=== PATIENT | male | born 1970 | race Caucasian/White ===

== ENCOUNTER 2020-05-28 08:03 | Inpatient (IN) | payer MEDICARE ==
[~2020-05-28] VITALS: Ht 167.6 cm; Wt 115.2 kg
--- NOTE | 2020-05-28 08:43 | PHYS DOC ---
General Adult HPI: HPI: No smoking from patient. Patient is a 49-year-old male with history of open heart surgery, chronic pain syndrome who presents with multiple complaints. Patient states he has had intermittent chest pain over the past several days. He also notes intermittent shortness of breath seems to be worse with exertion. He also notices at rest. Denies any fevers or cough. Does note that his entire body hurts. He states he thinks he had a panic attack last night because he feels very anxious. Denies any history of anxiety or panic attack. States that he was concerned that his blood sugar was high so he checked his blood sugar last night. States this is the first of his average blood sugar and it read as "high." He does endorse polydipsia and polyuria. Does note that he has a fentanyl patch in place. Notes chronic constipation from this. He states he has had gradual vision changes over the past week. He states that he is extremely blurred vision. He states that he can only make out blurred objects. He can appreciate color, light, and movement. Denies headache. Denies trauma. States that he did not think to contact his family physician because a family physician has been busy and he has an appointment June 11. Denies history of diabetes. No other complaints. Review of Systems: Review of Systems: Constitutional: Denies fever or chills Eyes: Positive for vision change HENT: Denies nasal congestion or sore throat Respiratory: Positive for shortness of breath Cardiovascular: Positive for chest pain GI: Denies abdominal pain, nausea, vomiting, bloody stools or diarrhea : Denies dysuria Musculoskeletal: Denies back pain or joint pain Integument: Denies rash Neurologic: Denies headache, focal weakness or sensory changes Endocrine: Positive for polyuria and polydipsia Lymphatic: Denies swollen glands Psychiatric: Denies depression or anxiety Physical Exam: PE: Constitutional: Well developed, well nourished, no acute distress, non-toxic appearance. [] HENT: Normocephalic, atraumatic, bilateral external ears normal, oropharynx moist, no oral exudates, nose normal. [] Eyes: PERRLA, EOMI, conjunctiva normal, no discharge. [] Neck: Normal range of motion, no tenderness, supple, no stridor. [] Cardiovascular:Heart rate regular rhythm, no murmur [] Lungs & Thorax: Bilateral breath sounds clear to auscultation [] Abdomen: Bowel sounds normal, soft, no tenderness, no masses, no pulsatile masses. [] Skin: Warm, dry, no erythema, no rash. [] Back: No tenderness, no CVA tenderness. [] Extremities: No tenderness, no cyanosis, no clubbing, ROM intact, no edema. [] Neurologic: Alert and oriented X 3, normal motor function, normal sensory function, no focal deficits noted. [] Psychologic: Affect normal, judgement normal, mood normal. [] Current Patient Data: Labs: Laboratory Tests Test 05/28/20 08:50 White Blood Count 6.9 x10^3/uL Red Blood Count 5.36 x10^6/uL Hemoglobin 15.8 g/dL Hematocrit 46.5 % Mean Corpuscular Volume 87 fL Mean Corpuscular Hemoglobin 29 pg Mean Corpuscular Hemoglobin Concent 34 g/dL Red Cell Distribution Width 13.5 % Platelet Count 187 x10^3/uL Neutrophils (%) (Auto) 73 % Lymphocytes (%) (Auto) 18 % Monocytes (%) (Auto) 7 % Eosinophils (%) (Auto) 1 % Basophils (%) (Auto) 1 % Neutrophils # (Auto) 5.0 x10^3uL Lymphocytes # (Auto) 1.3 x10^3/uL Monocytes # (Auto) 0.5 x10^3/uL Eosinophils # (Auto) 0.1 x10^3/uL Basophils # (Auto) 0.0 x10^3/uL Sodium Level 124 mmol/L Potassium Level 4.6 mmol/L Chloride Level 89 mmol/L Carbon Dioxide Level 26 mmol/L Anion Gap 9 Blood Urea Nitrogen 15 mg/dL Creatinine 1.4 mg/dL Estimated GFR (Cockcroft-Gault) 54.1 BUN/Creatinine Ratio 11 Glucose Level 638 mg/dL Calcium Level 9.3 mg/dL Magnesium Level 2.1 mg/dL Total Bilirubin 1.0 mg/dL Aspartate Amino Transf (AST/SGOT) 55 U/L Alanine Aminotransferase (ALT/SGPT) 134 U/L Alkaline Phosphatase 156 U/L Troponin I Quantitative < 0.017 ng/mL Total Protein 8.2 g/dL Albumin 4.0 g/dL Albumin/Globulin Ratio 1.0 Lipase 145 U/L EKG: EKG: [] EKG consistent with sinus tachycardia. Ventricular rate of 109 bpm. Left axis noted. Intervals normal. P wave inversion noted in leads V1 and V2. No acute ischemic changes appreciated. Radiology/Procedures: Radiology/Procedures: [address] [address] IMAGING REPORT Signed PATIENT: LES DURHAM AACCOUNT: [id number] : 1970 LOCATION: ER AGE: 49 SEX: M EXAM STATUS: REG ER ORD. PHYSICIAN: CASSIE SUAREZ DO REASON: CHEST PAIN PROCEDURE: CHEST AP ONLY EXAM: CHEST 1 VIEW History: Chest pain COMPARISON: None available. TECHNIQUE: Single portable radiograph of the chest FINDINGS: The cardiac silhouette is unremarkable. The lungs are clear bilaterally. The costophrenic sulci are clear and well demarcated. IMPRESSION: No radiographic evidence of an acute cardiopulmonary process. Electronically signed by: Yovani Avendano MD (05/28/2020 9:11 AM) [id number] DICTATED AND SIGNED BY: YOVANI AVENDANO MD DATE: 05/28/20910 CC: CASSIE SUAREZ DO; PRADEEP HO MD ~MTH0 0 [] Heart Score: Risk Factors: Risk Factors: DM, Current or recent (<one month) smoker, HTN, HLP, family history of CAD, obesity. Risk Scores: Score 0 - 3: 2.5% MACE over next 6 weeks - Discharge Home Score 4 - 6: 20.3% MACE over next 6 weeks - Admit for Clinical Observation Score 7 - 10: 72.7% MACE over next 6 weeks - Early Invasive Strategies Course & Med Decision Making: Course & Med Decision Making Pertinent Labs and Imaging studies reviewed. (See chart for details) [] Patient is a 49-year-old male who presents with multiple complaints. Initial vital signs notable for tachycardia. EKG consistent with sinus tachycardia. Initial blood sugar is severely elevated at 638. This likely indicates new onset diabetes. Pseudohyponatremia present. No signs of DKA. Slight DILCIA and clinical dehydration on examination. Fluids will be initiated. Patient will require hospitalization for education and medication initiation for his new onset diabetes. Dragon Disclaimer: Dragon Disclaimer: This electronic medical record was generated, in whole or in part, using a voice recognition dictation system. Departure Departure: Impression: Primary Impression: Diabetes mellitus, new onset Additional Impression: DILCIA (acute kidney injury) Disposition: 09 ADMITTED INPT THIS HOSP Condition: STABLE Referrals: PRADEEP HO MD (PCP) CASSIE SUAREZ DO May 28, 2020 08:42
[2020-05-28 09:06] LABS: BASO % 1 % (0-3); EOS # 0.1 x10^3/uL (0.0-0.7); EOS % 1 % (0-3); HEMATOCRIT 46.5 % (39.0-53.0); HEMOGLOBIN 15.8 g/dL (13.0-17.5); LYMPH # 1.3 x10^3/uL (1.0-4.8); LYMPH % 18 % (24-48); MEAN CORPUSCULAR HEMOGLOBIN 29 pg (25-35); MEAN CORPUSCULAR HGB CONC 34 g/dL (31-37); MEAN CORPUSCULAR VOLUME 87 fL (79-100); MONO # 0.5 x10^3/uL (0.0-1.1); MONO % 7 % (0-9); NEUT % 73 % (31-73); PLATELET COUNT 187 x10^3/uL (140-400); RED BLOOD COUNT 5.36 x10^6/uL (4.30-5.70); RED CELL DISTRIBUTION WIDTH 13.5 % (11.5-14.5); WHITE BLOOD COUNT 6.9 x10^3/uL (4.0-11.0)
--- NOTE | 2020-05-28 09:06 | EKG ---
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
--- NOTE | 2020-05-28 09:14 | RAD ---
EXAM: CHEST 1 VIEW History: Chest pain COMPARISON: None available. TECHNIQUE: Single portable radiograph of the chest FINDINGS: The cardiac silhouette is unremarkable. The lungs are clear bilaterally. The costophrenic sulci are clear and well demarcated. IMPRESSION: No radiographic evidence of an acute cardiopulmonary process. Electronically signed by: Yovani Avendano MD (05/28/2020 9:11 AM) [id number]
[2020-05-28 09:22] LABS: CALCIUM 9.3 mg/dL (8.5-10.1); CREATININE 1.4 mg/dL (0.7-1.3); GFR 54.1; MAGNESIUM 2.1 mg/dL (1.8-2.4); POTASSIUM 4.6 mmol/L (3.5-5.1); TOTAL PROTEIN 8.2 g/dL (6.4-8.2)
[2020-05-28 09:29] LABS: BILIRUBIN,URINE NEG (NEG); CLARITY,URINE CLEAR; COLOR,URINE YELLOW; GLUCOSE,URINE >=1000 mg/dL (NEG)
[2020-05-28 09:30] LABS: BACTERIA,URINE 0 /HPF (0-FEW); NITRITE,URINE NEG (NEG); RBC,URINE OCC /HPF (0-2); SQUAMOUS EPITHELIAL CELL,UR OCC /LPF; UROBILINOGEN,URINE 0.2 mg/dL (0.2 mg/dL); WBC,URINE OCC /HPF (0-4)
[2020-05-28] MEDS ORDERED: IV NORMAL SALINE 1,000ML 1,000 ML IV ONE (09:45)
[2020-05-28] MEDS ORDERED: ONDANSETRON PF 4 MG/2 ML VIAL. IVP PRN (09:45)
[2020-05-28] MEDS ORDERED: INSULIN REGULAR 100 UNIT/ML 3ML VIAL. IV ONE (12:45)
[2020-05-28 13:19] VITALS: BP 132/90
[2020-05-28] MEDS ORDERED: ATORVASTATIN CA80 MG PO (14:07)
[2020-05-28] MEDS ORDERED: ASPI-630 PO (14:07)
[2020-05-28] MEDS ORDERED: METO25TA2 PO (14:07)
--- NOTE | 2020-05-28 14:29 | NUR ---
ADMISSION NOTE-Pt arrives via EMS at 1252. He is ambulatory ad pipo from cot to bed. He is on RA, with NS through a 20g PIV in (R) AC at 150mL/hr continuous. VSS, BP is elevated, et FSBS at this time is 452mg/dL, after administration of insulin in ED. Pt is oriented to room, et hospital routine. Admission questions asked, et assessment complete. Dr Benson here to see patient.
[2020-05-28] MEDS ORDERED: DEXTROSE 50% 25 GM / 50ML DISP.SYRIN. IV PRN (14:30)
[2020-05-28] MEDS: fentaNYL 25MCG/HR 1 PATCH PATCH TD SCH (15:00)
--- NOTE | 2020-05-28 15:40 | HP ---
ADMIT DATE: 05/28/2020 HISTORY OF PRESENT ILLNESS: The patient is a 49-year-old male patient who came to the Emergency Room today complaining of intermittent chest pain over the past several days. He also noted intermittent shortness of breath. This seems to be worse with exertion. He also notes that at rest, he had denied any fever or cough. He notes that he has entire body hurts. He told also that he has panic attack last night because he feels very anxious. Denied any history of anxiety or panic attacks. States that he has concern for his blood sugar. It was high, so he checked his blood sugar last night and stated that this is the first of his average blood sugar that is read as high. He does endorse polydipsia and polyuria and does note that he has fentanyl patch in place. He knows that he has chronic constipation. He states that he has gradual vision changes over the past weeks and he now has extremely blurred vision. He said he can only make out blurred objects. He cannot appreciate color light and movement. Denies any headache or trauma. Does not drink. He did not contact his primary care physician as he has an appointment on 06/11. He was told that he is prediabetic in 2012 when he was in [place], [place] when he had his open heart surgery. He was investigated in the Emergency Room and his lab work showed that he has marked hyperglycemia with blood sugar of 638; however, he was not in diabetic ketoacidosis. His kidney function is slightly impaired and he has dilutional hyponatremia. His anion gap was only 9. He has also elevated AST, ALT, alkaline phosphatase and was admitted for further evaluation and treatment. His urinalysis showed the urine was yellow, clear with a pH of 5, specific gravity 1.005. The urine was negative for protein, glucose was more than 1000 and there was small amount of ketones, trace of blood, negative for nitrite and leukocyte esterase. There are no rbc's, no wbc's, and no bacteria. His chest x-ray showed that the cardiac silhouette is unremarkable. The lungs are clear bilaterally. Costophrenic sulci are clear and well demarcated with no radiographic evidence of acute cardiopulmonary process. He was admitted with new onset type 2 diabetes mellitus, was started on IV fluid as well as insulin. PAST MEDICAL HISTORY: Significant for hypertension, hyperlipidemia, coronary artery disease. He also has morbid obesity with obstructive sleep apnea for which he was on CPAP. He has also chronic pain syndrome. PAST SURGICAL HISTORY: Significant for coronary artery bypass graft surgery and 2 surgeries also for his sternal wound dehiscence, appendectomy, tonsillectomy, left breast lump that was benign. ALLERGIES: HE IS ALLERGIC TO PENICILLIN AND MORPHINE. MEDICATIONS: He is currently on atorvastatin calcium 80 mg at bedtime, metoprolol succinate 25 mg once a day, aspirin 81 mg once a day and fentanyl patch 25 mcg topically q.72 hours. FAMILY HISTORY: He has one brother older and still alive with multiple medical problems, but he does not know him very well. He does not know his biological father. His mother at the age of 42 because of complication of end-stage renal disease and kidney transplant. SOCIAL HISTORY: He is , lives with his . He has a daughter from previous marriage. He quit smoking in 2012. He does not drink alcohol or use any recreational drugs. He is currently on disability. REVIEW OF SYSTEMS: The patient complained of blurring vision, but denied any cataract, glaucoma or macular degeneration. Denied any earache, tinnitus or sensorineural deafness. Denied any nosebleeds, stuffy nose or postnasal drip. Denied any sore throat, sore tongue, toothache, hoarseness of voice or difficulty swallowing. Denied any nausea, vomiting or diarrhea, but did complain of constipation. Denied any hematemesis, melena or hematochezia. Did complain of polyuria and polydipsia, but denied any dysuria or hematuria. Did complain of chest pain that apparently has been chronic since his multiple operations in the chest wall about in 2012 and 2013. Denied any orthopnea or paroxysmal nocturnal dyspnea. Denied any cough, phlegm or hemoptysis. Denied any dizziness, lightheadedness, or vertigo. Denied any chills, rigors or fever. ASSESSMENT AND PLAN: In summary, this is a 49-year-old male patient who came in with new onset type 2 diabetes mellitus with blood sugar that was extremely high at 638 mg/dL; however, his anion gap was only 9. He has also dilutional hyponatremia. PLAN: My plan is to reconcile all his medication including his fentanyl patch. We will start him on sliding scale as well as before meals and Lantus insulin, and we will add also on Glucophage and we will decide on further management accordingly. I will add also 2 more sets of cardiac enzyme. We will check his fasting lipid profile tomorrow as well as hemoglobin A1c. TYRESE MEDINA MD DR: VINAY/franchesca JOB#: [id number] / [id number]
[2020-05-28 16:46] VITALS: BP 160/98
[2020-05-28] MEDS: INSULIN LISPRO 300 UNITS/3 ML VIAL. SQ SCH ×2 (16:57→16:58)
[2020-05-28] MEDS: metFORMIN XR 500 MG TAB.ER.24H PO SCH (16:58)
[2020-05-28 19:48] VITALS: BP 139/85
[2020-05-28] MEDS ORDERED: INSULIN GLARGINE SYRINGE. SQ SCH (21:00)
[2020-05-28 22:32] VITALS: BP 110/69
--- NOTE | 2020-05-29 04:53 | NUR ---
Pt sleeping off and on through the night. He c/o occasional abdominal cramping LLQ, at times radiates to left flank or left lumbar. Pt states he has a constant 8/10 pain in his chest from wiring of sternum, even with lidocaine patch. Will continue to monitor.
[2020-05-29 05:51] VITALS: BP 124/90
[2020-05-29 07:42] LABS: BASO % 1 % (0-3); EOS # 0.1 x10^3/uL (0.0-0.7); EOS % 3 % (0-3); HEMATOCRIT 45.8 % (39.0-53.0); HEMOGLOBIN 15.7 g/dL (13.0-17.5); LYMPH # 1.2 x10^3/uL (1.0-4.8); LYMPH % 26 % (24-48); MEAN CORPUSCULAR HEMOGLOBIN 30 pg (25-35); MEAN CORPUSCULAR HGB CONC 34 g/dL (31-37); MEAN CORPUSCULAR VOLUME 87 fL (79-100); MONO # 0.2 x10^3/uL (0.0-1.1); MONO % 5 % (0-9); NEUT % 66 % (31-73); PLATELET COUNT 178 x10^3/uL (140-400); RED BLOOD COUNT 5.29 x10^6/uL (4.30-5.70); RED CELL DISTRIBUTION WIDTH 13.4 % (11.5-14.5); WHITE BLOOD COUNT 4.6 x10^3/uL (4.0-11.0)
[2020-05-29 07:46] LABS: CALCIUM 8.7 mg/dL (8.5-10.1); CREATININE 0.9 mg/dL (0.7-1.3); GFR 90.1; POTASSIUM 3.5 mmol/L (3.5-5.1)
[2020-05-29] MEDS: INSULIN LISPRO 300 UNITS/3 ML VIAL. SQ SCH ×6 (08:24→17:05)
[2020-05-29] MEDS: METOPROLOL SUCC 24HR ER 25 MG TAB.ER.24H. PO SCH (08:26)
[2020-05-29] MEDS: ATORVASTATIN CALCIUM 20 MG TABLET PO SCH (08:27)
[2020-05-29] MEDS: metFORMIN XR 500 MG TAB.ER.24H PO SCH ×2 (08:27→17:02)
[2020-05-29] MEDS: ASPIRIN CHEWABLE 81 MG TABLET. PO SCH (08:27)
[2020-05-29] MEDS ORDERED: FLU VACC QS 2020-21(6MOS+)/PF 0.5 ML SYRINGE. VAX IM ONE (09:00)
[2020-05-29 10:13] VITALS: BP 138/78
[2020-05-29 14:59] VITALS: BP 126/62
--- NOTE | 2020-05-29 15:17 | NUR ---
NSG NOTE; DIABETES EDUCATION HANDOUTS GIVEN ON DIABETES, DIET, METFORMIN AND INSULIN PT WAS EDUCATED ABOUT INJECTIONS AND WAS ABLE TO GIVE HIS OWN INSULIN AFTER I MICHELLE IT UP FROM THE BOTTLE. PT DOES HAVE A GLUCOMETER AT HOME THAT HE KNOWS HOW TO USE. HE STATED THAT HE WAS TOLD IN THE PAST THAT HE IS PREDIABETIC SO HIS HAD BOUGHT THE GLUCOMETER.
[2020-05-29 18:56] VITALS: BP 128/83
--- NOTE | 2020-05-29 20:42 | PN ---
DATE: 05/29/2020 SUBJECTIVE: The patient is sitting at the edge of the bed, eating his lunch comfortably, in no apparent distress. On questioning him, he denied any complaint. His chest pain is well controlled with fentanyl. His blood sugar obviously continued to be high, although it trending down. We did start him on Lantus and NovoLog insulin as well as metformin. In all likelihood that he probably will need to go home on insulin and therefore we start training him to check his blood sugar and also inject his own insulin. PHYSICAL EXAMINATION: GENERAL: When I saw him this afternoon, he looked well and was clearly in no apparent respiratory distress. No pallor, jaundice, cyanosis or thyromegaly. No jugular venous distention or limb edema. VITAL SIGNS: His heart rate was 103, blood pressure was 138/78, temperature 97.4, respiratory rate was 20, and oxygen saturation was 98%. HEAD, EYES, EARS, NOSE AND THROAT: Normocephalic, atraumatic. NECK: Supple. CARDIAC: Normal first and second heart sounds. No gallop, rub or murmur. CHEST: Clear to auscultation. No crepitation or rhonchi. ABDOMEN: Distended, soft, nontender. NEUROLOGIC: He was grossly intact. His intake over the last 24 hours was 1100, no output was recorded. LABORATORY DATA: His white cell count was 4600, hemoglobin 15, hematocrit 45, MCV 87, and platelet count of 178,000. Serum sodium was 131, potassium 3.5, chloride 98, bicarbonate 24, anion gap of 9, BUN 10, creatinine 0.9, estimated GFR was 90 mL per minute. His glucose was 318 and calcium was 8.7. His serum triglycerides were 342, total cholesterol 186, LDL was 91, VLDL was 68, HDL was 27 and the ratio was 6. ASSESSMENT: 1. New onset type 2 diabetes mellitus. 2. Hypertension. 3. Hyperlipidemia. 4. Coronary artery disease. 5. Morbid obesity, obstructive sleep apnea, on CPAP. 6. Chronic pain syndrome. PLAN: My plan is to increase his Glucophage to twice a day. We will also increase his Lantus to 30 units at bedtime and his NovoLog insulin to 15 units before meals and we will monitor his lab work and hopefully discharge him on a regimen that will control his blood sugar and his triglycerides. TYRESE MEDINA MD DR: [facility] JOB#: [id number] / [id number]
[2020-05-29] MEDS ORDERED: INSULIN GLARGINE SYRINGE. SQ SCH (21:00)
[2020-05-29 23:05] VITALS: BP 111/79
[2020-05-30 05:05] VITALS: BP 100/69
--- NOTE | 2020-05-30 05:56 | NUR ---
Pt reported he did not sleep well last night. He requested a sleeping pill about 0300. Medication and side effects discussed with pt. Ice cream given. Pt fell asleep shortly afterwards. Pt also requested an extra blanket through the night. Will continue to monitor.
[2020-05-30] MEDS: metFORMIN XR 500 MG TAB.ER.24H PO SCH ×2 (08:00→17:00)
[2020-05-30] MEDS: INSULIN LISPRO 300 UNITS/3 ML VIAL. SQ SCH ×6 (08:08→17:00)
[2020-05-30] MEDS: ASPIRIN CHEWABLE 81 MG TABLET. PO SCH (08:10)
[2020-05-30] MEDS: ATORVASTATIN CALCIUM 20 MG TABLET PO SCH (08:11)
[2020-05-30] MEDS: METOPROLOL SUCC 24HR ER 25 MG TAB.ER.24H. PO SCH (08:11)
[2020-05-30 08:38] LABS: CALCIUM 8.9 mg/dL (8.5-10.1); GFR 79.8; POTASSIUM 3.7 mmol/L (3.5-5.1)
[2020-05-30 10:45] VITALS: BP 149/99
[2020-05-30 11:22] VITALS: BP 136/92
[2020-05-30 14:54] VITALS: BP 154/98
[2020-05-30] MEDS ORDERED: INSULIN LISPRO 300 UNITS/3 ML VIAL. SQ SCH (15:15)
[2020-05-30 19:05] VITALS: BP 130/83
--- NOTE | 2020-05-30 20:42 | PN ---
DATE: 05/30/2020 SUBJECTIVE: The patient continues to be complaining of blurring of vision. He has chronic chest pain, but denied any other complaints. Nursing staff stated that his blood sugar continued to be high above the 300. PHYSICAL EXAMINATION: GENERAL: When I examined him this afternoon, he looked well and was clearly in no apparent respiratory distress. No pallor, jaundice, cyanosis or thyromegaly. No jugular venous distention. No limb edema. VITAL SIGNS: His heart rate was 88, blood pressure 154/98, temperature was 97.8, respiratory rate was 16, and oxygen saturation was 98%. The rest of clinical examination is stable. His intake was 1100, no output was recorded. LABORATORY DATA: His chemistry this morning showed a serum sodium 134, potassium 3.7, chloride 100, bicarbonate 24, anion gap of 10, BUN 12, creatinine 1. His estimated GFR was 80 mL per minute. His glucose was 321 and calcium was 8.9. ASSESSMENT: 1. New-onset type 2 diabetes mellitus with extreme hyperglycemia. 2. Blurred vision, likely due to osmotic changes in his lens. 3. Hypertension. 4. Hyperlipidemia. 5. Coronary artery disease. 6. Morbid obesity, obstructive sleep apnea, on continuous positive airway pressure. 7. Chronic pain syndrome. I did increase his Lantus to 50 units and NovoLog to 20 units before meals and Glucophage to 1000 mg twice a day. We will continue to monitor his blood sugar overnight and hopefully discharge him home to follow with his primary care physician. TYRESE MEDINA MD DR: VINAY/franchesca JOB#: [id number] / [id number]
[2020-05-30] MEDS ORDERED: INSULIN GLARGINE SYRINGE. SQ SCH (21:00)
[2020-05-30] MEDS ORDERED: traZODone 50 MG TABLET. PO SCH (21:00)
--- NOTE | 2020-05-31 04:50 | NUR ---
Pt awake in bed watching movie on cellphone at change of shift. Pt A&Ox4, pleasant and cooperative. Pt reports jumping legs tonight as he attempts to fall asleep. Slept on and off during night, stated "I always have trouble sleeping." Pt hopeful for DC home tomorrow. Pt took shower independently this AM.
[2020-05-31 05:22] VITALS: BP 123/79
[2020-05-31 06:10] LABS: CALCIUM 8.9 mg/dL (8.5-10.1); CREATININE 1.1 mg/dL (0.7-1.3); GFR 71.4; POTASSIUM 3.9 mmol/L (3.5-5.1)
[2020-05-31] MEDS: INSULIN LISPRO 300 UNITS/3 ML VIAL. SQ SCH ×4 (07:56→12:05)
[2020-05-31] MEDS: ASPIRIN CHEWABLE 81 MG TABLET. PO SCH (07:58)
[2020-05-31] MEDS: METOPROLOL SUCC 24HR ER 25 MG TAB.ER.24H. PO SCH (07:58)
[2020-05-31] MEDS: metFORMIN XR 500 MG TAB.ER.24H PO SCH (07:58)
[2020-05-31] MEDS: fentaNYL 25MCG/HR 1 PATCH PATCH TD SCH (07:59)
[2020-05-31] MEDS: ATORVASTATIN CALCIUM 20 MG TABLET PO SCH (08:04)
[2020-05-31 10:47] VITALS: BP 145/91
[2020-05-31 15:19] VITALS: BP 167/84
[2020-05-31] MEDS ORDERED: INSU100I13 SQ (15:46)
[2020-05-31] MEDS ORDERED: CRESTOR40 MG PO (15:46)
[2020-05-31] MEDS ORDERED: METF100010 PO (15:46)
[2020-05-31] MEDS ORDERED: ROPI0.25 PO (15:46)
[2020-05-31] MEDS ORDERED: INSU100V31 SQ (15:46)
--- NOTE | 2020-05-31 16:16 | NUR ---
PATIENT IS DISCHARGED HOME, DISCHARGE INSTRUCTIONS, MEDICATIONS REVIEWED , PATIENT VERBALIZED UNDERSTANDING. PATIENT LEFT UNIT VIA AMBULATION ACCOMPANIED BY STAFF MEMBER. PATIENT TAKEN HOME BY VIA PERSONAL VEHICLE.
--- NOTE | 2020-05-31 21:47 | DS ---
DATE OF DISCHARGE: 05/31/2020 HOSPITAL COURSE: The patient is a 49-year-old male patient who was admitted on 05/28 with intermittent chest pain over the past several days ____ intermittent shortness of breath. His blood sugar has been also extremely high, and in fact, by the time he arrived to the Emergency Room, his blood sugar was more than 600; however, he was not in diabetic ketoacidosis. He was slightly dehydrated also, dilutional hyponatremia and abnormal elevated liver enzymes, likely due to nonalcoholic steatohepatitis. The patient was started on IV fluid and started him on insulin, initially with NovoLog insulin and we added Lantus. His blood sugar has steadily come down. We did check his fasting lipid profile which showed that his serum triglycerides are elevated at 342. His total cholesterol was high and LDL cholesterol was also still high at 91. His VLDL was 68 and HDL was 27, the ratio was 6. He also complained of blurring of vision and I advised him not to go to his data conversion analyst to change his lenses up until his blood sugar is well controlled. PHYSICAL EXAMINATION: GENERAL: When I saw him today, he was sitting at the edge of the bed comfortably in no apparent respiratory distress. No pallor, jaundice, cyanosis, or thyromegaly. No jugular venous distention. No limb edema. VITAL SIGNS: His heart rate was 102, blood pressure was 167/84, temperature was 97.9, respiratory rate was 18 and oxygen saturation was 99%. HEAD, EYES, EARS, NOSE AND THROAT: Showed normocephalic, atraumatic. NECK: Supple. CARDIAC: Normal first and second heart sounds. No gallop, rub or murmur. CHEST: Clear to auscultation. No crepitation or rhonchi. ABDOMEN: Distended, soft, nontender. NEUROLOGIC: He is grossly intact. His intake was 1860, no output was recorded. LABORATORY DATA: His most recent lab work showed his serum sodium was 136, potassium 3.9, chloride 100, bicarbonate 28, anion gap of 8, BUN 12, creatinine 1.1, estimated GFR was 71 mL per minute. His glucose was 166 and calcium was 8.9. His white cell count was 4600, hemoglobin 16, hematocrit 46, MCV 87 and platelet count of 178,000. His urinalysis showed the urine was yellow, clear with a pH of 5, specific gravity 1.005. There was large amount of glycosuria, trace of ketones, trace of blood, negative for leukocyte esterase. We did check his hemoglobin A1c, the results of which are still pending at the time of this dictation. He was discharged home to continue on NovoLog insulin 20 units before meals and Lantus insulin 50 units subcutaneous at bedtime, metformin extended release 1000 mg twice a day, Requip 0.25 mg at bedtime and Crestor 40 mg at bedtime. Should continue also on aspirin and metoprolol succinate 25 mg daily. I did stop his atorvastatin calcium as his LDL cholesterol was still high. FINAL DISCHARGE DIAGNOSES: New-onset type 2 diabetes mellitus; hypertension; coronary artery disease; morbid obesity; obstructive sleep apnea, on CPAP; chronic pain syndrome; and restless leg syndrome. TYRESE MEDINA MD DR: VINAY/franchesca JOB#: [id number] / [id number]
== END 2020-05-31 16:15 | disposition home or self-care (01) | DRG 637 ==
LOC: ER 08:03 → 1 SOUTH 11:50
PROVIDERS: ADMIT Internal Medicine; ATTEND Internal Medicine
DX: E11.00 Type 2 diabetes mellitus with hyperosmolarity without nonketotic hyperglycemic-hyperosmolar coma (NKHHC) (principal); N17.0 Acute kidney failure with tubular necrosis; E87.1 Hypo-osmolality and hyponatremia; Z68.41 Body mass index [BMI] 40.0-44.9, adult; K75.81 Nonalcoholic steatohepatitis (NASH); E11.65 Type 2 diabetes mellitus with hyperglycemia; G47.33 Obstructive sleep apnea (adult) (pediatric); E78.5 Hyperlipidemia, unspecified; E66.01 Morbid (severe) obesity due to excess calories; E78.1 Pure hyperglyceridemia; E86.0 Dehydration; F41.0 Panic disorder [episodic paroxysmal anxiety]; G25.81 Restless legs syndrome; G89.4 Chronic pain syndrome; I10 Essential (primary) hypertension; I25.10 Atherosclerotic heart disease of native coronary artery without angina pectoris; K59.09 Other constipation; Z87.891 Personal history of nicotine dependence; Z95.1 Presence of aortocoronary bypass graft; Z88.0 Allergy status to penicillin; Z88.8 Allergy status to other drugs, medicaments and biological substances; Z90.49 Acquired absence of other specified parts of digestive tract; K21.9 Gastro-esophageal reflux disease without esophagitis
CPT/HCPCS: 36415; 71045; 80048; 80053; 80061; 81001; 82947; 83036; 83690; 83735; 84484; 85025; 90471; 90686; 93005; 96360; 96361; J1815; 99285-25; J7030

== ENCOUNTER 2020-11-05 01:32 | Emergency (ER) | payer MEDICARE ==
[~2020-11-05] VITALS: Ht 167.6 cm; Wt 118.0 kg
[~2020-11-05 01:32] MED LIST: ASPI-630 PO; ATORVASTATIN CA80 MG PO; CRESTOR40 MG PO; INSU100I13 SQ; INSU100V31 SQ; METF100010 PO; METO25TA2 PO; ROPI0.25 PO
--- NOTE | 2020-11-05 02:04 | PHYS DOC ---
Past History Past Medical History: High Cholesterol, Hypertension, MO, Other Additional Past Medical Histor: CHRONIC CHEST PAIN~ PT IS WEARING A FENTANYL PATCH Past Surgical History: Appendectomy, Coronary Bypass Surgery, Other Additional Past Surgical Histo: CHEST REWIRED MULTIPLE TIMES Alcohol Use: None Adult General HPI HPI Patient is a 50yo male presenting via POV for body cramps. Onset was x2 days ago without inciting event, trauma or medicaiton change. Nothing known makes better or worse. Denies significant pain just, "feels like the beginning of getting a emilie horse or muscle cramp". These happen in bilateral calves and sometimes bicep/tricep region. Has significant cardiac history, denies chest pain. No feve r or recent sick contacts or travel Review of Systems Review of Systems Fourteen body systems of review of systems have been reviewed. See HPI for pertinent positives and negative responses, other garrison all other systems are negative, non-pertinent or non-contributory Allergies Allergies Allergies Coded Allergies Type Severity Reaction Last Updated Verified Penicillins Allergy Unknown 05/28/20 Yes morphine Allergy Unknown 05/28/20 Yes Physical Exam Physical Exam Constitutional: Well developed, well nourished, no acute distress, non-toxic appearance. HENT: Normocephalic, atraumatic, bilateral external ears normal, oropharynx m oist, no oral exudates, nose normal. Eyes: PERRLA, EOMI, conjunctiva normal, no discharge. Neck: Normal range of motion, no tenderness, supple, no stridor. Cardiovascular: Heart rate regular, sinus rhythm, no murmurs rubs or gallops Lungs & Thorax: Bilateral breath sounds clear to auscultation Abdomen: Bowel sounds normal, soft, no tenderness, no masses, no pulsatile masses. Nonsurgical abdomen, no peritoneal signs Skin: Warm, dry, no erythema, no rash. Back: No tenderness, no CVA tenderness. Extremities: No tenderness, no cyanosis, no clubbing, ROM intact, no edema. Neurologic: Alert and oriented X 3, grossly normal motor & sensory function, no focal deficits noted. Psychologic: Affect normal, judgement normal, mood normal. Current Patient Data Vital Signs Vital Signs Date Time Temp Pulse Resp B/P (MAP) Pulse Ox O2 Delivery O2 Flow Rate FiO2 11/05/20 01:32 98.2 113 16 141/110 (120) 94 Room Air Vital Signs Date Time Temp Pulse Resp B/P (MAP) Pulse Ox O2 Delivery O2 Flow Rate FiO2 11/05/20 04:30 91 22 136/76 (96) 95 Room Air 11/05/20 01:32 98.2 Lab Results Current Medications Medications (Trade) Dose Ordered Sig/Shakir Route PRN Reason Start Time Stop Time Status Last Admin Dose Admin Sodium Chloride 500 ml @ 0 mls/hr 1X ONCE IV 11/05/20 02:45 11/05/20 02:46 DC 11/05/20 03:10 EKG EKG EKG ordered and interpreted by myself 0242 hrs. as sinus rhythm at 122 bpm, unremarkable intervals, left axis deviation, no obvious ischemic findings, no STEMI Radiology/Procedures Radiology/Procedures Single view chest dated 11/05/2020: Comparison made to 05/28/2020. Clinical Indication: Chest discomfort. Findings: Single upright portable exam of the chest was performed. Heart size and mediastinal contours are within normal limits. Lungs are clear. No consolidation or pleural effusion. No pneumothorax. Impression:: No acute radiographic abnormality. Electronically signed by: Grzegorz Frye MD (11/05/2020 2:38 AM) [facility] Heart Score C/O Chest Pain: No HEART Score for Chest Pain: HEART Score for Chest Pain Response (Comments) Value History Slighlty/Non-Suspicious 0 ECG Nonspecific Repolarizatio 1 Age > 65 2 Risk Factors 1 or 2 Risk Factors 1 Troponin < Normal Limit 0 Total 4 Risk Factors: Risk Factors: DM, Current or recent (<one month) smoker, HTN, HLP, family history of CAD, obesity. Risk Scores: Risk Factors: DM, Current or recent (<one month) smoker, HTN, HLP, family history of CAD, obesity. Course & Med Decision Making Course & Med Decision Making VSS. HPI and PE and ER workup all non-concerning for emergent or surgical issues Reviewed findings with patient. Discussed HEART score and risk given patient's underlying comorbidities and offered cardiac obs admission but he declined. Discussed low likelihood of emergent of surgical issues causing his symptoms. I discussed this could all be anxiety in etiology Patient has good access to care with PCP and has had workup on this problem in the past, close follow-up and continued supportive care advised Strict return precautions discussed prior to departure Vipul Disclaimer Vipul Disclaimer This electronic medical record was generated, in whole or in part, using a voice recognition dictation system. Departure Departure: Impression: Primary Impression: Muscle cramps Additional Impression: Anxiety about health Disposition: HOME / SELF CARE / HOMELESS Condition: STABLE Referrals: PRADEEP OH MD (PCP) Additional Instructions: As discussed prior to your departure, your physical exam was reassuring, your comprehensive ER work-up did not show any emergent or surgical findings which is good news. With that said, I do not have a clear-cut source for your presenting symptoms. With that said, there were no emergent findings or further indication for further diagnostic work-up in ER setting or hospitalization. I advise you call your primary care physician first thing this morning to discuss ER visit and need for close outpatient follow-up for continued work-up. If any concerning signs or symptoms discussed present prior to outpatient follow-up please do not hesitate to come back for repeat evaluation. It was a pleasure to take care of you and I wish you the best going forward Problem Qualifiers JAIDA GAREBR DO Nov 05, 2020 02:04
--- NOTE | 2020-11-05 02:40 | RAD ---
Single view chest dated 11/05/2020: Comparison made to 05/28/2020. Clinical Indication: Chest discomfort. Findings: Single upright portable exam of the chest was performed. Heart size and mediastinal contours are with in normal limits. Lungs are clear. No consolidation or pleural effusion. No pneumothorax. Impression:: No acute radiographic abnormality. Electronically signed by: Grzegorz Frye MD (11/05/2020 2:38 AM) [facility]
[2020-11-05] MEDS ORDERED: IV NORMAL SALINE 500ML 500 ML IV ONE (02:45)
--- NOTE | 2020-11-05 02:54 | EKG ---
[address] [address] Test Date: 2020-11-05 Test Time: 02:36:46 Pat Name: LES DURHAM Department: Room: Gender: M Clinical Research Technician: : [id number] Requested By: JAIDA GARBER Order Number: [id number] Reading MD: Measurements Intervals Gamaliel Rate: 122 P: 51 AR: 142 QRS: -24 QRSD: 90 T: 31 QT: 312 QTc: 446 Interpretive Statements SINUS TACHYCARDIA LEFT ATRIAL ABNORMALITY LEFTWARD AXIS RVH WITH REPOLARIZATION ABNORMALITY QRS(T) CONTOUR ABNORMALITY CONSISTENT WITH ANTEROSEPTAL INFARCT AGE UNDETERMINED ABNORMAL ECG RI6.02 No previous ECG available for comparison
[2020-11-05 04:10] LABS: BACTERIA,URINE 0 /HPF (0-FEW); BILIRUBIN,URINE NEG (NEG); CLARITY,URINE CLEAR; COLOR,URINE YELLOW; GLUCOSE,URINE NEG (NEG); NITRITE,URINE NEG (NEG); RBC,URINE 0 /HPF (0-2); SQUAMOUS EPITHELIAL CELL,UR OCC /LPF; UROBILINOGEN,URINE 0.2 mg/dL (0.2 mg/dL); WBC,URINE 0 /HPF (0-4)
[2020-11-05 04:14] LABS: BASO % 0 % (0-3); EOS # 0.1 x10^3/uL (0.0-0.7); EOS % 1 % (0-3); HEMATOCRIT 45.8 % (39.0-53.0); HEMOGLOBIN 15.9 g/dL (13.0-17.5); LYMPH # 1.6 x10^3/uL (1.0-4.8); LYMPH % 14 % (24-48); MEAN CORPUSCULAR HEMOGLOBIN 29 pg (25-35); MEAN CORPUSCULAR HGB CONC 35 g/dL (31-37); MEAN CORPUSCULAR VOLUME 84 fL (79-100); MONO # 0.6 x10^3/uL (0.0-1.1); MONO % 5 % (0-9); NEUT # 8.9 x10^3uL (1.8-7.7); NEUT % 79 % (31-73); PLATELET COUNT 260 x10^3/uL (140-400); RED BLOOD COUNT 5.46 x10^6/uL (4.30-5.70); RED CELL DISTRIBUTION WIDTH 13.9 % (11.5-14.5); WHITE BLOOD COUNT 11.2 x10^3/uL (4.0-11.0)
[2020-11-05 04:23] LABS: ALBUMIN 4.3 g/dL (3.4-5.0); CALCIUM 9.9 mg/dL (8.5-10.1); CREATININE 1.1 mg/dL (0.7-1.3); GFR 71.1; POTASSIUM 4.1 mmol/L (3.5-5.1); TOTAL BILIRUBIN 0.5 mg/dL (0.2-1.0); TOTAL PROTEIN 8.4 g/dL (6.4-8.2)
[2020-11-05 04:30] VITALS: BP 136/76
== END 2020-11-05 05:00 | disposition home or self-care (01) ==
LOC: ER 01:32
DX: R25.2 Cramp and spasm (principal); F41.9 Anxiety disorder, unspecified; E78.00 Pure hypercholesterolemia, unspecified; I10 Essential (primary) hypertension; I25.2 Old myocardial infarction; Z95.1 Presence of aortocoronary bypass graft; Z88.0 Allergy status to penicillin; Z88.5 Allergy status to narcotic agent
CPT/HCPCS: 36415; 71045; 80053; 81001; 83605; 83735; 84443; 84484; 85025; 93005; 96360; 99285; J7040